=== PATIENT | female | born 1970 | race Caucasian/White ===

== ENCOUNTER 2018-01-29 18:00 | Inpatient (IN) | payer BC, OTHER ==
[2018-01-29 19:02] LABS: #Eosinphils 0.1 thou/uL (0.0-0.7); #Lymphocytes 1.2 thou/uL (1.20-3.40); #Monocytes 0.5 thou/uL (0.11-0.59); #Neutrophils 6.2 thou/uL (1.40-6.50); %Basophils 0.4 % (0.0-1.0); %Eosinophils 1.7 % (0.0-10.0); %Lymphocytes 14.9 % (21.0-51.0); Hemoglobin 12.8 g/dL (12.0-16.0); Mean Corpuscular HGB CONC 33.4 g/dL (32.0-36.0); Mean Corpuscular Hemoglobin 28.4 pg (27.0-31.0); Mean Corpuscular Volume 84.9 fL (78.0-98.0); Mean Platelet Volume 7.2 fL (7.4-10.4); Platelet Count 237 thou/uL (130-400); RBC Distribution Width 12.6 % (11.5-14.5); Red Blood Cell (RBC) Count 4.52 mill/uL (4.20-5.40)
[2018-01-29 19:07] LABS: BHCG - Serum Negative (NEGATIVE); Pregs Control Background? CLEAR/WHITE (CLR/WHITE); Pregs Control Bar Appear? YES (CONTROL BAR)
[2018-01-29] MEDS ORDERED: Ondansetron PF 4 MG/2 ML Vial ONE (19:15)
[2018-01-29] MEDS ORDERED: Morphine 4 MG/ML VIAL ONE (19:15)
[2018-01-29] MEDS ORDERED: Adacel (T-DAP) 0.5 ML SYRINGE ONE ×2 (19:15→19:23)
[2018-01-29 19:29] LABS: ALT (SGPT) 15 U/L (8-55); AST (SGOT) 24 U/L (5-34); Albumin 3.8 g/dL (3.5-5.0); Alkaline Phosphatase 59 U/L (40-150); Anion Gap 12 mmol/L (10-20); BUN (Urea Nitrogen) 10 mg/dL (7.0-18.7); Bilirubin, Total 0.4 mg/dL (0.2-1.2); Calc. Creatinine Clearance 0 mL/min (70-130); Calcium 8.9 mg/dL (7.8-10.44); Carbon Dioxide 27 mmol/L (22-29); Chloride 103 mmol/L (98-107); Estimated GFR-MDRD 69; Globulin 3.4 g/dL (2.4-3.5); Glucose 133 mg/dL (70-105); Potassium 3.5 mmol/L (3.5-5.1); Protein, Total 7.2 g/dL (6.0-8.3); Sodium 138 mmol/L (136-145)
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
[2018-01-29] MEDS ORDERED: Promethazine HCl 25 MG/ML VIAL IM PRN ×2 (22:23)
[2018-01-29] MEDS ORDERED: Ondansetron PF 4 MG/2 ML Vial IVP PRN (22:23)
[2018-01-29] MEDS ORDERED: Dextrose 50% Abboject 50 ML SYRINGE SLOW IVP PRN (22:23)
[2018-01-29] MEDS ORDERED: traMADol HCl 50 MG TAB PO PRN ×2 (22:23)
[2018-01-29] MEDS ORDERED: Ondansetron ODT 4 MG TAB PO PRN (22:23)
[2018-01-29] MEDS ORDERED: hydrALAZINE 20 MG/ML VIAL SLOW IVP PRN (22:23)
[2018-01-29] MEDS ORDERED: Dextrose 5% in Water 1,000 ML IV PRN (22:23)
[2018-01-29] MEDS ORDERED: Ketorolac Tromethamine 30 MG/ML VIAL IVP SCH (22:45)
[2018-01-29] MEDS ORDERED: Famotidine 20 MG TAB PO SCH (22:45)
[2018-01-29] MEDS ORDERED: Acetaminophen 1,000 MG in Premix Bag 1 BAG IVPB SCH (22:45)
[2018-01-29] MEDS ORDERED: Ibuprofen 800 MG TAB PO SCH (22:45)
[2018-01-29 22:52] VITALS: BMI 47.5
[2018-01-29] MEDS: Cyclobenzaprine 10 MG TAB PO PRN (23:16)
[2018-01-30] MEDS: Acetaminophen 500 MG TAB PO SCH ×3 (05:49→18:20)
[2018-01-30] MEDS: Ibuprofen 800 MG TAB PO SCH ×3 (05:49→21:42)
[2018-01-30] MEDS: HYDROcodone/Acetaminophen 10/325 mg Tablet PO PRN ×2 (05:53→13:37)
[2018-01-30 06:38] LABS: #Lymphocytes 1.4 thou/uL (1.20-3.40); #Monocytes 0.7 thou/uL (0.11-0.59); #Neutrophils 2.9 thou/uL (1.40-6.50); %Basophils 0.2 % (0.0-1.0); %Eosinophils 0.9 % (0.0-10.0); %Lymphocytes 27.6 % (21.0-51.0); %Monocytes 13.1 % (0.0-10.0); %Neutrophils 58.2 % (42.0-75.0); Hemoglobin 10.8 g/dL (12.0-16.0); Mean Corpuscular HGB CONC 33.2 g/dL (32.0-36.0); Mean Corpuscular Hemoglobin 28.4 pg (27.0-31.0); Mean Corpuscular Volume 85.4 fL (78.0-98.0); Mean Platelet Volume 7.6 fL (7.4-10.4); Platelet Count 181 thou/uL (130-400); RBC Distribution Width 12.7 % (11.5-14.5)
[2018-01-30 06:55] LABS: Anion Gap 9 mmol/L (10-20); BUN (Urea Nitrogen) 12 mg/dL (7.0-18.7); Calc. Creatinine Clearance 214 mL/min (70-130); Calcium 8.3 mg/dL (7.8-10.44); Carbon Dioxide 27 mmol/L (22-29); Chloride 109 mmol/L (98-107); Estimated GFR-MDRD 88; Glucose 92 mg/dL (70-105); Potassium 3.6 mmol/L (3.5-5.1); Sodium 141 mmol/L (136-145)
[2018-01-30] MEDS: Famotidine 20 MG TAB PO SCH ×2 (09:11→21:42)
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
[2018-01-30] MEDS ORDERED: Gabapentin 300 MG CAP PO SCH (16:15)
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
[2018-01-30] MEDS: traMADol HCl 50 MG TAB PO SCH (18:21)
[2018-01-30] MEDS: Gabapentin 300 MG CAP PO SCH (21:42)
[2018-01-30] MEDS: Cyclobenzaprine 10 MG TAB PO PRN (21:42)
[2018-01-31] MEDS: Acetaminophen 500 MG TAB PO SCH ×4 (00:32→19:03)
[2018-01-31] MEDS: traMADol HCl 50 MG TAB PO SCH ×4 (00:33→19:03)
[2018-01-31] MEDS: traMADol HCl 50 MG TAB PO PRN ×2 (00:34→10:00)
[2018-01-31] MEDS: Ibuprofen 800 MG TAB PO SCH ×3 (06:18→20:55)
[2018-01-31] MEDS: Famotidine 20 MG TAB PO SCH ×2 (07:47→20:55)
[2018-01-31] MEDS: Senokot 8.6 MG TAB PO SCH (07:47)
[2018-01-31] MEDS: Docusate 100 MG CAP PO SCH (07:47)
[2018-01-31] MEDS: Gabapentin 300 MG CAP PO SCH ×3 (07:47→20:55)
[2018-01-31] MEDS ORDERED: Lactated Ringer's 1,000 ML IV SCH (08:00)
[2018-01-31] MEDS: Polyethylene Glycol 3350 17 GM Packet PO SCH (09:13)
[2018-01-31] MEDS: Cyclobenzaprine 10 MG TAB PO PRN (10:01)
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
--- NOTE | 2018-01-31 13:41 | EKG ---
Test Reason : Blood Pressure : / mmHG Vent. Rate : 092 BPM Atrial Rate : 092 BPM P-R Int : 140 ms QRS Dur : 090 ms QT Int : 374 ms P-R-T Axes : 046 006 023 degrees QTc Int : 462 ms Normal sinus rhythm Normal ECG Confirmed by MARIA A CUMMINS DO ([id number]), brands editor LEONOR TELLES ([id number]) on 01/31/2018 1:41:10 PM Referred By: Confirmed By:MARIA A CUMMINS DO
[2018-02-01] MEDS: Acetaminophen 500 MG TAB PO SCH ×3 (00:29→11:34)
[2018-02-01] MEDS: traMADol HCl 50 MG TAB PO SCH ×3 (00:29→11:35)
[2018-02-01] MEDS: Ibuprofen 800 MG TAB PO SCH (05:13)
[2018-02-01] MEDS: Famotidine 20 MG TAB PO SCH (08:43)
[2018-02-01] MEDS: Gabapentin 300 MG CAP PO SCH (08:43)
[2018-02-01] MEDS: Polyethylene Glycol 3350 17 GM Packet PO SCH (08:44)
[2018-02-01] MEDS: Senokot 8.6 MG TAB PO SCH (08:44)
[2018-02-01] MEDS: Docusate 100 MG CAP PO SCH (08:45)
[2018-02-01] MEDS: Cyclobenzaprine 10 MG TAB PO PRN (08:56)
[2018-02-01] MEDS ORDERED: Enoxaparin Sodium 30 MG/0.3 ML SYRINGE SC SCH (09:00)
[2018-02-01 11:36] VITALS: BP 131/84; TEMP 98.1
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
== END 2018-02-01 15:20 | disposition home or self-care (01) | DRG 536 ==
LOC: ERS 18:00 → SJJU 22:07
PROVIDERS: ADMIT Surgery; ATTEND Surgery
DX: S32.810A Multiple fractures of pelvis with stable disruption of pelvic ring, initial encounter for closed fracture (principal); S32.059A Unspecified fracture of fifth lumbar vertebra, initial encounter for closed fracture; G89.11 Acute pain due to trauma; K59.09 Other constipation; V49.40XA Driver injured in collision with unspecified motor vehicles in traffic accident, initial encounter
CPT/HCPCS: 36415; 70450; 70486; 71045; 71260; 72125; 74177; 80048; 80053; 82533; 84484; 84703; 85025; 86850; 86900; 86901; 90471; 90686; 90715; 93005; 96361; 96374; 96375; G0008; G0390; G8978-GP-CL; G8979-GP-CJ; G8987-GO-CL; G8988-GO-CI; J0131; J1650; J1885; J2270; J2405